=== PATIENT | female | born 1950 | race Caucasian/White ===

== ENCOUNTER 2020-11-13 07:24 | Emergency (ER) | payer MEDICARE, OTHER ==
[~2020-11-13 07:24] MED LIST: ADULT LOW DOSE81 MG PO; BRILINTA90 MG PO; CLARITIN10 MG PO; COLACE 100MG C100 MG PO; COREG 3.125M3.125 MG PO; CRESTOR10 MG PO; FEOSOL325 MG PO; IMDUR ER TAB 3030 MG PO; K-DUR TAB 20 M20 MEQ PO; LASIX40 MG PO; LISINOPRIL10 MG PO; LOPRESSOR 25 MG25 MG PO; OMNICEF 300 MG300 MG PO; OXCARBAZEPINE300 MG PO; PROTONIX40 MG PO; SINGULAIR10 MG PO
[2020-11-13 08:53] LABS: HEMOGLOBIN 14.4 gm/dl (12.3-15.3); RED BLOOD COUNT 4.63 M/UL (4.00-5.10); WHITE BLOOD COUNT 12.2 K/UL (4.5-11.0)
[2020-11-13 09:12] LABS: BUN/CREATININE RATIO 20 (0-10)
== END 2020-11-13 13:25 | disposition home or self-care (01) ==
LOC: ER1 07:24
PROVIDERS: Physician Assistant
DX: N93.9 Abnormal uterine and vaginal bleeding, unspecified (principal); E87.1 Hypo-osmolality and hyponatremia; I25.2 Old myocardial infarction; I10 Essential (primary) hypertension; F17.210 Nicotine dependence, cigarettes, uncomplicated; Z88.0 Allergy status to penicillin; Z79.01 Long term (current) use of anticoagulants; Z79.899 Other long term (current) drug therapy
CPT/HCPCS: 76830; 80053; 85025; 96374; 96375; 99284; J2270; J2405

== ENCOUNTER 2021-02-26 13:28 | Inpatient (IN) | payer MEDICARE, OTHER ==
[~2021-02-26] VITALS: Ht 175.3 cm; Wt 68.0 kg
[2021-02-26 14:05] LABS: HEMOGLOBIN 12.7 gm/dl (12.3-15.3); RED BLOOD COUNT 4.29 M/UL (4.00-5.10)
[2021-02-27] MEDS ORDERED: FLONASE 0.05% N16 GM (00:16)
--- NOTE | 2021-02-27 03:44 | NUR ---
PT HAS ORDER FOR [facility]/PULSE OX, SPOKE WITH ROB IN [place] STATES THEY HAVE 1 PULSE OX CORD AND IT HAS TO BE USED FOR A COVID PT, SINCE THIS PT IS NOT ON ANY O2 CURRENTLY.
[2021-02-27 09:46] LABS: HEMOGLOBIN 11.8 gm/dl (12.3-15.3); RED BLOOD COUNT 4.18 M/UL (4.00-5.10); WHITE BLOOD COUNT 12.8 K/UL (4.5-11.0)
[2021-02-27 10:36] LABS: BUN/CREATININE RATIO 19 (0-10)
[2021-02-27] MEDS ORDERED: OXCARBAZEPINE300 MG PO (20:43)
--- NOTE | 2021-02-28 01:56 | NUR ---
NOTIFIED BELTING INSPECTOR THAT THE PT HAD AN ORDER FOR CONTINUOUS PULSE OX. BELTING INSPECTOR STATED THAT THEY WERE CURRENTLY OUT OF PULSE OX CORDS. THEY STATED THAT THEY WOULD ADD HER TO THE WAITING LIST.
[2021-02-28 05:33] LABS: HEMOGLOBIN 12.4 gm/dl (12.3-15.3); RED BLOOD COUNT 4.22 M/UL (4.00-5.10); WHITE BLOOD COUNT 10.6 K/UL (4.5-11.0)
[2021-02-28 06:10] LABS: BUN/CREATININE RATIO 15 (0-10)
[2021-03-01 05:43] LABS: HEMOGLOBIN 11.6 gm/dl (12.3-15.3); RED BLOOD COUNT 3.96 M/UL (4.00-5.10); WHITE BLOOD COUNT 11.3 K/UL (4.5-11.0)
[2021-03-01 06:13] LABS: BUN/CREATININE RATIO 13 (0-10)
[2021-03-01 08:15] LABS: RHEUMATOID ARTHRITIS FACTOR <10.0 IU/mL (0.0-13.9)
[2021-03-01 13:07] LABS: BODY FLUID SOURCE BRONCHIAL LAVAGE
[2021-03-01] MEDS ORDERED: BACTRIM 400-801 EACH PO (14:59)
[2021-03-01] MEDS ORDERED: FLAGYL500 MG PO (14:59)
[2021-03-01 15:10] LABS: ANTI-CENTROMERE B ANTIBODIES <0.2 AI (0.0-0.9); ANTI-DNA (DS) AB QN <1 IU/mL (0-9); ANTI-JO-1 <0.2 AI (0.0-0.9); ANTICHROMATIN ANTIBODIES <0.2 AI (0.0-0.9); ANTIRIBOSOMAL P ANTIBODIES <0.2 AI (0.0-0.9); ANTISCLERODERMA-70 ANTIBODIES 0.5 AI (0.0-0.9); RNP ANTIBODIES 0.3 AI (0.0-0.9); SJOGREN'S ANTI-SS-A <0.2 AI (0.0-0.9); SJOGREN'S ANTI-SS-B <0.2 AI (0.0-0.9); SMITH ANTIBODIES <0.2 AI (0.0-0.9); SMITH/RNP ANTIBODIES <0.2 AI (0.0-0.9)
[2021-03-02 20:12] LABS: ATYPICAL PANCA <1:20 titer (Neg:<1:20); PERINUCLEAR (P-ANCA) <1:20 titer (Neg:<1:20)
[2021-03-04 09:11] LABS: DSDNA CRITHIDIA LUCILIAE IFA Negative (Negative)
== END 2021-03-01 16:32 | disposition home or self-care (01) | DRG 181 ==
LOC: ER1 13:28 → MED SURG 4 18:18 → CDU 18:18 → MED SURG 4 18:18
PROVIDERS: Internal Medicine Pulmonary Disease; Physician Assistant; Physician Assistant Medical; ADMIT Internal Medicine
PROC: 0BJ08ZZ Inspection of Tracheobronchial Tree, Via Natural or Artificial Opening Endoscopic (ICD-10-PCS; 2021-03-01)
PROC: 0B9D8ZX Drainage of Right Middle Lung Lobe, Via Natural or Artificial Opening Endoscopic, Diagnostic (ICD-10-PCS; principal; 2021-03-01 08:30)
DX: C34.90 Malignant neoplasm of unspecified part of unspecified bronchus or lung (principal); E87.1 Hypo-osmolality and hyponatremia; I50.22 Chronic systolic (congestive) heart failure; I76 Septic arterial embolism; I44.0 Atrioventricular block, first degree; I11.0 Hypertensive heart disease with heart failure; E78.5 Hyperlipidemia, unspecified; Z20.822 Contact with and (suspected) exposure to COVID-19; I25.10 Atherosclerotic heart disease of native coronary artery without angina pectoris; I25.5 Ischemic cardiomyopathy; R91.8 Other nonspecific abnormal finding of lung field; J30.2 Other seasonal allergic rhinitis; F17.210 Nicotine dependence, cigarettes, uncomplicated; Z95.1 Presence of aortocoronary bypass graft; Z98.51 Tubal ligation status; Z88.0 Allergy status to penicillin; Z82.49 Family history of ischemic heart disease and other diseases of the circulatory system; Z79.899 Other long term (current) drug therapy; Z79.82 Long term (current) use of aspirin
CPT/HCPCS: ECHO; 36415; 70450; 71045; 80048; 80053; 80202; 81001; 82150; 82550; 82553; 82945; 83516; 83615; 83874; 83880; 83986; 84157; 84484; 85025; 85027; 85652; 86140; 86235; 86255; 86256; 86431; 87015; 87040; 87070; 87116; 87205; 87206; 87252; 89051; 93005; 93306; 96374; 96375; 96376; 99285; G0378; J0456; J0696; J2704; J3370; J7030; J7040; J7050; J7070; Q9967; U0002

== ENCOUNTER 2021-03-22 12:43 | Inpatient (IN) | payer MEDICARE, OTHER ==
[~2021-03-22] VITALS: Ht 175.3 cm; Wt 68.0 kg
[~2021-03-22 12:43] MED LIST changes: +BACTRIM 400-801 EACH PO; +BRILINTA60 MG PO; -BRILINTA90 MG PO; -COREG 3.125M3.125 MG PO; +DEXAMETHASONE 44 MG PO; +FLAGYL500 MG PO; +FLONASE 0.05% N16 GM
[2021-03-22] MEDS ORDERED: COREG6.25 MG PO (13:10)
[2021-03-22 13:19] LABS: HEMOGLOBIN 12.7 gm/dl (12.3-15.3); RED BLOOD COUNT 4.33 M/UL (4.00-5.10); WHITE BLOOD COUNT 19.4 K/UL (4.5-11.0)
[2021-03-22 14:38] LABS: BORDETELLA PARAPERTUSSIS Not Detected (Not Detectd); BORDETELLA PERTUSSIS Not Detected (Not Detectd); CHLAMYDIA PNEUMONIAE Not Detected (Not Detectd); CORONAVIRUS HKU1 Not Detected (Not Detectd); CORONAVIRUS NL63 Not Detected (Not Detectd); CORONAVIRUS OC43 Not Detected (Not Detectd); CORONOAVIRUS 229E Not Detected (Not Detectd); HUMAN METAPNEUMOVIRUS Not Detected (Not Detectd); HUMAN RHINOVIRUS/ENTEROVIRUS Not Detected (Not Detectd); INFLUENZA A Not Detected (Not Detectd); INFLUENZA B Not Detected (Not Detectd); MYCOPLASMA PNEUMONIAE Not Detected (Not Detectd); PARAINFLUENZA VIRUS 1 Not Detected (Not Detectd); PARAINFLUENZA VIRUS 2 Not Detected (Not Detectd); PARAINFLUENZA VIRUS 3 Not Detected (Not Detectd); PARAINFLUENZA VIRUS 4 Not Detected (Not Detectd); RESPIRATORY SYNCYTIAL VIRUS Not Detected (Not Detectd)
[2021-03-22] MEDS ORDERED: PROTONIX40 MG PO (15:11)
[2021-03-22 15:53] LABS: SARS-CoV-2 NOT DETECTED (Not Detectd)
[2021-03-22] MEDS ORDERED: PROMETHAZINE HC25 M1 PO (16:36)
[2021-03-22] MEDS ORDERED: ZOFRAN ODT 4 MG4 MG PO (16:37)
[2021-03-23 04:21] LABS: HEMOGLOBIN 10.8 gm/dl (12.3-15.3); WHITE BLOOD COUNT 18.2 K/UL (4.5-11.0)
[2021-03-23 04:25] LABS: RED BLOOD COUNT 3.78 M/UL (4.00-5.10)
[2021-03-23 05:24] LABS: BUN/CREATININE RATIO 21 (0-10)
[2021-03-24 05:29] LABS: HEMOGLOBIN 10.7 gm/dl (12.3-15.3); RED BLOOD COUNT 3.71 M/UL (4.00-5.10); WHITE BLOOD COUNT 20.1 K/UL (4.5-11.0)
[2021-03-24 06:03] LABS: BUN/CREATININE RATIO 14 (0-10)
[2021-03-24 15:12] LABS: ANTI-CENTROMERE B ANTIBODIES <0.2 AI (0.0-0.9); ANTI-DNA (DS) AB QN <1 IU/mL (0-9); ANTI-JO-1 <0.2 AI (0.0-0.9); ANTICHROMATIN ANTIBODIES <0.2 AI (0.0-0.9); ANTIRIBOSOMAL P ANTIBODIES <0.2 AI (0.0-0.9); ANTISCLERODERMA-70 ANTIBODIES 0.3 AI (0.0-0.9); RNP ANTIBODIES 0.2 AI (0.0-0.9); SJOGREN'S ANTI-SS-A <0.2 AI (0.0-0.9); SJOGREN'S ANTI-SS-B <0.2 AI (0.0-0.9); SMITH ANTIBODIES <0.2 AI (0.0-0.9); SMITH/RNP ANTIBODIES <0.2 AI (0.0-0.9)
[2021-03-25 05:02] LABS: HEMOGLOBIN 11.1 gm/dl (12.3-15.3); RED BLOOD COUNT 3.87 M/UL (4.00-5.10); WHITE BLOOD COUNT 20.3 K/UL (4.5-11.0)
[2021-03-25 05:20] LABS: BUN/CREATININE RATIO 10 (0-10)
[2021-03-25] MEDS ORDERED: SODIUM CHLORIDE1 GM PO (09:00)
[2021-03-25] MEDS ORDERED: CEFDINIR300 MG PO (09:00)
[2021-03-27 15:14] LABS: ANTIMYELOPEROXIDASE (MPO) ABS <9.0 U/mL (0.0-9.0); ANTIPROTEINASE 3 (PR-3) ABS <3.5 U/mL (0.0-3.5); ATYPICAL PANCA <1:20 titer (Neg:<1:20); CYTOPLASMIC (C-ANCA) 1:40 titer (Neg:<1:20); PERINUCLEAR (P-ANCA) <1:20 titer (Neg:<1:20)
== END 2021-03-25 10:57 | disposition home or self-care (01) | DRG 315 ==
LOC: ER1 12:43 → CDU 14:47 → MED SURG 4 14:47
PROVIDERS: Nurse Practitioner; Physician Assistant Medical; Preventive Medicine Occupational Medicine; ADMIT Internal Medicine
DX: I95.9 Hypotension, unspecified (principal); I50.22 Chronic systolic (congestive) heart failure; E22.2 Syndrome of inappropriate secretion of antidiuretic hormone; M84.471A Pathological fracture, right ankle, initial encounter for fracture; I25.10 Atherosclerotic heart disease of native coronary artery without angina pectoris; I25.5 Ischemic cardiomyopathy; F17.210 Nicotine dependence, cigarettes, uncomplicated; E78.5 Hyperlipidemia, unspecified; R91.1 Solitary pulmonary nodule; T38.0X5A Adverse effect of glucocorticoids and synthetic analogues, initial encounter; I77.6 Arteritis, unspecified; G47.00 Insomnia, unspecified; D64.9 Anemia, unspecified; I25.2 Old myocardial infarction; Z98.51 Tubal ligation status; Z98.890 Other specified postprocedural states; Z95.1 Presence of aortocoronary bypass graft; Z79.82 Long term (current) use of aspirin; Z88.0 Allergy status to penicillin; Z82.49 Family history of ischemic heart disease and other diseases of the circulatory system; Z88.2 Allergy status to sulfonamides
CPT/HCPCS: 36415; 36600; 70450; 70486; 71045; 73600; 80048; 80053; 80202; 80307; 81001; 82140; 82436; 82533; 82550; 82553; 82803; 83516; 83520; 83605; 83735; 83874; 83880; 83935; 84133; 84300; 84439; 84443; 84484; 85025; 85027; 85652; 86140; 86235; 86256; 87040; 87081; 87086; 87633; 87880; 93005; 94664; 94760; 96374; 99285; J0692; J0696; J1650; J3370; J7030; J7070

== ENCOUNTER 2021-04-01 12:20 | Emergency (ER) | payer MEDICARE, OTHER ==
[~2021-04-01 12:20] MED LIST changes: +CEFDINIR300 MG PO; +COREG6.25 MG PO; +PROMETHAZINE HC25 M1 PO; +SODIUM CHLORIDE1 GM PO; +ZOFRAN ODT 4 MG4 MG PO
== END 2021-04-01 15:45 | disposition home or self-care (01) ==
LOC: ER1 12:20
DX: S29.011A Strain of muscle and tendon of front wall of thorax, initial encounter (principal); F17.200 Nicotine dependence, unspecified, uncomplicated; Z88.0 Allergy status to penicillin; Z88.2 Allergy status to sulfonamides; W19.XXXA Unspecified fall, initial encounter
CPT/HCPCS: 71111; 93005; 99283

== ENCOUNTER → 2021-04-06 | Outpatient (CLI) | payer MEDICARE, OTHER | LOC: KOH-I 16:24 | DX: R07.81 Pleurodynia (principal); R91.8 Other nonspecific abnormal finding of lung field | CPT/HCPCS: 71046 ==